=== PATIENT | male | born 1950 | race Caucasian/White ===

== ENCOUNTER 2022-05-30 13:00 | Outpatient (RCR) | payer MEDICARE, SELFPAY | END 2022-06-05 15:14 | disposition home or self-care (01) | LOC: PT.CARL 13:00 | PROVIDERS: Visit Provider Psychiatry & Neurology Neurology | DX: R26.89 Other abnormalities of gait and mobility (principal); R53.83 Other fatigue; G60.9 Hereditary and idiopathic neuropathy, unspecified; E55.9 Vitamin D deficiency, unspecified | CPT/HCPCS: 97110; 97112; 97163 ==